=== PATIENT | male | born 1965 | race Caucasian/White ===

== ENCOUNTER 2016-09-17 06:25 | Emergency (ER) | payer OTHER ==
[~2016-09-17] VITALS: Ht 185.4 cm; Wt 80.0 kg
[2016-09-17 06:35] VITALS: BP 132/86; PULSE 81; RESP 16; TEMP 98.7; O2SAT 97
--- NOTE | 2016-09-17 06:36 | PD ---
HPI Chief Complaint: Pain: Acute or Chronic Time Seen by Provider: 06:31 Travel History International Travel<30 days: No Contact w/Intl Traveler<30days: No History of Present Illness HPI 51-year-old male here with complaint of right groin pain. Patient states that he has a known hernia. At approximately 8 PM yesterday he felt increasing right inguinal/groin pain and has been unable to spontaneously void. Patient currently incarcerated, and while at [facility] had a straight urinary catheter placed with return of 100 mL of urine. His pain is unrelieved. The physician at [facility] noticed a hernia within the right groin, unable to reduce and patient was sent here. Patient notes 10 out of 10 pain in the right groin with symptoms radiating up into the abdomen with nausea, vomiting. He had a normal bowel movement yesterday. Denies any history of bowel obstructions. PFS Past Medical History Medical History: Denies Significant Hx Social History Alcohol Use: No Tobacco Use: No Substance Use: No Allergies-Medications (Allergen,Severity, Reaction): Coded Allergies: No Known Allergies (Unverified , 09/17/16) Reported Meds & Prescriptions Reported Meds & Active Scripts Active No Active Prescriptions or Reported Medications Review of Systems Except as stated in HPI: all other systems reviewed are Neg Physical Exam Narrative GENERAL: Uncomfortable male holding right groin SKIN: Warm and dry. HEAD: Normocephalic. EYES: No scleral icterus. No injection or drainage. ENT: Mucous membranes pink and moist. NECK: Supple CARDIOVASCULAR: Regular rate and rhythm. No murmur appreciated. RESPIRATORY: No accessory muscle use. Clear to auscultation. Breath sounds equal bilaterally. GASTROINTESTINAL: Abdomen soft, mild diffuse tenderness to palpation of the abdomen without rebound or guarding, nondistended. GENITOURINARY: Normal external genitalia. Large inguinal hernia on the right that extends down into the scrotum him a significant tender to palpation. Unable to reproduce initially on exam. MUSCULOSKELETAL: No obvious deformities. No edema. NEUROLOGICAL: Awake and alert. Normal speech. PSYCHIATRIC: Appropriate mood and affect; insight and judgment normal. Data Data Last Documented VS Vital Signs Date Time Temp Pulse Resp B/P Pulse Ox O2 Delivery O2 Flow Rate FiO2 09/17/16 06:35 98.7 81 16 132/86 97 Room Air Orders Iv Access Insert/Monitor (09/17/16 06:31) Ecg Monitoring (09/17/16 06:31) Oximetry (09/17/16 06:31) Ondansetron Inj (Zofran Inj) (09/17/16 06:45) Sodium Chloride 0.9% Flush (Ns Flush) (09/17/16 06:45) Hydromorphone Pf Inj (Dilaudid Pf Inj) (09/17/16 06:45) Hydromorphone Pf Inj (Dilaudid Pf Inj) (09/17/16 06:45) MDM Medical Decision Making Medical Screen Exam Complete: Yes Emergency Medical Condition: Yes Medical Record Reviewed: Yes Differential Diagnosis 51-year-old male here with right groin pain, swelling and inability to urinate. Patient has obvious right inguinal hernia on exam, very tender and with his nausea concerning for incarcerated hernia versus strangulated hernia. His inability to urinate and possible bladder distention likely compounds his pain. Narrative Course Patient placed on monitor, IV established and blood obtained. Patient given 1 mg Dilaudid, 4 mg Zofran and ice applied to the right groin. Patient still uncomfortable and was given second dose of 1 mg Dilaudid IV. Patient feeling improved, slow steady pressure was applied to the right groin was successful reduction of right inguinal hernia. Patient had significant relief. Abdominal binder applied and patient will be discharged. Diagnosis Primary Impression: Right inguinal hernia Referrals: General Surgeon call for appointment Departure Forms: Tests/Procedures, Work Release Enter return to work date: Sep 18, 2016 Special Instructions: No lifting greater than 5 pounds until hernia is been repaired. Additional Instructions: Tylenol, ibuprofen, Aleve as needed for pain. Follow-up with general surgeon for hernia repair. Ice the affected area 20 minutes at a time 3-4 times daily. No lifting greater than 5 pounds. Med/Other Pt SpecificInfo: No Change to Meds Scripts No Active Prescriptions or Reported Meds Disposition: 01 DISCHARGE HOME Condition: Stable Cindy Nicole MD Sep 17, 2016 06:36
[2016-09-17] MEDS ORDERED: ONDANSETRON HCL 4 MG/2 ML VIAL IVP ONE (06:45)
[2016-09-17] MEDS ORDERED: HYDROmorphone HCL PF 1 MG/ML VIAL IV PUSH ONE (06:45)
[2016-09-17] MEDS ORDERED: SODIUM CHLORIDE 0.9% FLUSH 5 ML FLUSH IVF PRN (06:45)
[2016-09-17] MEDS ORDERED: HYDROmorphone HCL PF 1 MG/ML VIAL IVS ONE (06:45)
[2016-09-17 14:26] VITALS: BP 130/87; PULSE 72; RESP 18; O2SAT 96
== END 2016-09-17 14:33 | disposition home or self-care (01) ==
LOC: NEPE 06:25
DX: K40.90 Unilateral inguinal hernia, without obstruction or gangrene, not specified as recurrent (principal)
CPT/HCPCS: 96374; 96375; 99283; J1170; J2405